=== PATIENT | female | born 1950 | race Caucasian/White ===

== ENCOUNTER 2017-04-04 23:18 | Inpatient (IN) | payer MEDICARE, OTHER ==
[~2017-04-04 23:18] MED LIST: ALDACTONE25 M1 PO; ALOGLIPTIN6.25 MG PO; ASPIRIN325 M3 PO; CATAPRES0.1 M1 PO; COLACE100 M1 PO; COREG25 M1 PO; COZAAR100 M1 PO; CPAP; EFFEXOR XR75 M1 PO; GLIPIZIDE5 M2 PO; KEFLEX500 M4 PO; LASIX40 M1 PO; LIPITOR20 M1 PO; NEPHRO-VITE RX1 EAC1 PO; NORVASC5 M2 PO; PERCOCET 5-3251 EACH PO; ROCALTROL0.25 MC1 PO; VITAMIN D PO; VITAMIN D50000 UNI2 PO; ZYLOPRIM100 M1 PO
[2017-04-04] MEDS ORDERED: VITAMIN D50000 UNI2 PO (23:37)
[2017-04-04] MEDS ORDERED: [UNRECOGNIZED DRUG - OTHER] PO (23:43)
[2017-04-05 02:45] LABS: BASO % 0.1 % (0-2); HCT-HEMATOCRIT 22.9 % (34.0-49.0); HGB-HEMOGLOBIN 7.6 gm/dl (12.0-15.5); IMMATURE GRANULOCYTES ABSOLUTE 0.01 tho/cmm (0-0.03); IMMATURE GRANULOCYTES PERCENT 0.1 % (0-0.3); LYMPH % 8.4 % (20-45); LYMPH ABSOLUTE COUNT 0.7 tho/cmm (0.8-4.5); MCH (MEAN CORPUSCULAR HGB) 31.7 pg (28.0-32.0); MCHC MEAN CORPUSCULAR HGB CONC 33.2 % (32.0-36.0); MCV (MEAN CELL VOLUME) 95.4 fl (82.0-96.0); MONO % 13.9 % (0-12); MONOCYTE ABSOLUTE COUNT 1.2 tho/cmm (0.0-1.2); NEUTROPHIL ABSOLUTE COUNT 6.8 tho/cmm (1.6-8.0); NEUTROPHIL-AUTOMATED 6.8 tho/cmm (1.6-8.0); NEUTROPHILS % 77.5 % (40-80); PLATELET COUNT 114 tho/cmm (150-450); RED CELL DISTRIBUTION WIDTH 14.7 % (12.4-16.4); WHITE BLOOD COUNT 8.7 tho/cmm (4.0-10.0)
[2017-04-05 04:25] LABS: PHOSPHOROUS 2.4 mg/dl (2.5-4.9)
[2017-04-05 06:17] LABS: ALB/GLOB RATIO 0.9 (0.8-2.0); ALBUMIN 3.1 g/dl (3.5-5.0); ALKALINE PHOSPHATASE 92 U/L (33-138); ALT/SGPT 42 U/L (12-78); ANION GAP 15 mmol/L (0-20); AST/SGOT 36 U/L (10-40); BILIRUBIN,TOTAL 0.5 mg/dl (0-1.5); BLOOD UREA NITROGEN 49 mg/dl (6-24); CALCIUM 8.6 mg/dl (8.5-10.5); CARBON DIOXIDE-VENOUS 21 mmol/L (22-32); CHLORIDE 111 mmol/l (96-110); CREATININE 2.67 mg/dl (0.50-1.10); POTASSIUM 4.8 mmol/L (3.7-5.1); SODIUM 142 mmol/L (135-145); eGFR VALUE FOR BLACK 20 mL/Min
[2017-04-05 06:32] LABS: GLUCOSE 168 mg/dL (70-110)
[2017-04-05 10:53] LABS: IRON 16 ug/dl (37-170); IRON BINDING CAPACITY 249 ug/dl (250-450)
[2017-04-06 04:35] LABS: EOS % 0.4 % (0-7); HGB-HEMOGLOBIN 7.2 gm/dl (12.0-15.5); IMMATURE GRANULOCYTES ABSOLUTE 0.02 tho/cmm (0-0.03); IMMATURE GRANULOCYTES PERCENT 0.4 % (0-0.3); LYMPH % 12.1 % (20-45); LYMPH ABSOLUTE COUNT 0.6 tho/cmm (0.8-4.5); MCHC MEAN CORPUSCULAR HGB CONC 33.3 % (32.0-36.0); MEAN PLATELET VOLUME 9.9 cmc (9.4-12.4); MONOCYTE ABSOLUTE COUNT 0.9 tho/cmm (0.0-1.2); NEUTROPHIL ABSOLUTE COUNT 3.5 tho/cmm (1.6-8.0); NEUTROPHIL-AUTOMATED 3.5 tho/cmm (1.6-8.0); NEUTROPHILS % 69.1 % (40-80); PLATELET COUNT 106 tho/cmm (150-450); RED BLOOD COUNT 2.25 mil/cmm (4.00-5.20); RED CELL DISTRIBUTION WIDTH 14.8 % (12.4-16.4); WHITE BLOOD COUNT 5.1 tho/cmm (4.0-10.0)
[2017-04-06 04:38] LABS: HCT-HEMATOCRIT 21.6 % (34.0-49.0)
[2017-04-06 04:51] LABS: ALBUMIN 2.6 g/dl (3.5-5.0); ANION GAP 13 mmol/L (0-20); BLOOD UREA NITROGEN 60 mg/dl (6-24); CALCIUM 8.5 mg/dl (8.5-10.5); CARBON DIOXIDE-VENOUS 24 mmol/L (22-32); CHLORIDE 108 mmol/l (96-110); PHOSPHOROUS 3.8 mg/dl (2.5-4.9); POTASSIUM 4.6 mmol/L (3.7-5.1); SODIUM 140 mmol/L (135-145)
[2017-04-06 05:04] LABS: CREATININE 3.48 mg/dl (0.50-1.10); GLUCOSE 82 mg/dL (70-110); eGFR VALUE FOR BLACK 15 mL/Min
[2017-04-07 05:00] LABS: BASO % 0.2 % (0-2); EOS % 0.2 % (0-7); IMMATURE GRANULOCYTES ABSOLUTE 0.04 tho/cmm (0-0.03); IMMATURE GRANULOCYTES PERCENT 0.8 % (0-0.3); LYMPH % 10.5 % (20-45); LYMPH ABSOLUTE COUNT 0.5 tho/cmm (0.8-4.5); MCV (MEAN CELL VOLUME) 95.4 fl (82.0-96.0); MEAN PLATELET VOLUME 9.5 cmc (9.4-12.4); MONO % 22.3 % (0-12); MONOCYTE ABSOLUTE COUNT 1.1 tho/cmm (0.0-1.2); NEUTROPHIL ABSOLUTE COUNT 3.3 tho/cmm (1.6-8.0); NEUTROPHIL-AUTOMATED 3.3 tho/cmm (1.6-8.0); PLATELET COUNT 113 tho/cmm (150-450); RED BLOOD COUNT 2.19 mil/cmm (4.00-5.20); RED CELL DISTRIBUTION WIDTH 14.5 % (12.4-16.4); WHITE BLOOD COUNT 4.9 tho/cmm (4.0-10.0)
[2017-04-07 05:05] LABS: HCT-HEMATOCRIT 20.9 % (34.0-49.0); MCHC MEAN CORPUSCULAR HGB CONC 33.5 % (32.0-36.0)
[2017-04-07 05:16] LABS: ALBUMIN 2.6 g/dl (3.5-5.0); ANION GAP 14 mmol/L (0-20); BLOOD UREA NITROGEN 68 mg/dl (6-24); CALCIUM 8.4 mg/dl (8.5-10.5); CARBON DIOXIDE-VENOUS 24 mmol/L (22-32); CHLORIDE 104 mmol/l (96-110); CREATININE 3.59 mg/dl (0.50-1.10); PHOSPHOROUS 3.9 mg/dl (2.5-4.9); POTASSIUM 4.3 mmol/L (3.7-5.1); SODIUM 138 mmol/L (135-145); eGFR VALUE FOR BLACK 14 mL/Min
[2017-04-07 05:25] LABS: GLUCOSE 59 mg/dL (70-110)
[2017-04-08 06:10] LABS: BASO % 0.4 % (0-2); EOS % 0.2 % (0-7); HCT-HEMATOCRIT 24.4 % (34.0-49.0); HGB-HEMOGLOBIN 8.1 gm/dl (12.0-15.5); IMMATURE GRANULOCYTES PERCENT 1.9 % (0-0.3); LYMPH % 14.8 % (20-45); LYMPH ABSOLUTE COUNT 0.8 tho/cmm (0.8-4.5); MCH (MEAN CORPUSCULAR HGB) 30.7 pg (28.0-32.0); MCHC MEAN CORPUSCULAR HGB CONC 33.2 % (32.0-36.0); MCV (MEAN CELL VOLUME) 92.4 fl (82.0-96.0); MEAN PLATELET VOLUME 10.2 cmc (9.4-12.4); MONO % 14.6 % (0-12); MONOCYTE ABSOLUTE COUNT 0.8 tho/cmm (0.0-1.2); NEUTROPHIL ABSOLUTE COUNT 3.5 tho/cmm (1.6-8.0); NEUTROPHIL-AUTOMATED 3.5 tho/cmm (1.6-8.0); NEUTROPHILS % 68.1 % (40-80); PLATELET COUNT 119 tho/cmm (150-450); RED BLOOD COUNT 2.64 mil/cmm (4.00-5.20); RED CELL DISTRIBUTION WIDTH 16.7 % (12.4-16.4); WHITE BLOOD COUNT 5.2 tho/cmm (4.0-10.0)
[2017-04-08 06:20] LABS: ALBUMIN 2.6 g/dl (3.5-5.0); ANION GAP 16 mmol/L (0-20); BLOOD UREA NITROGEN 73 mg/dl (6-24); CALCIUM 8.5 mg/dl (8.5-10.5); CARBON DIOXIDE-VENOUS 24 mmol/L (22-32); CHLORIDE 104 mmol/l (96-110); CREATININE 3.76 mg/dl (0.50-1.10); GLUCOSE 83 mg/dL (70-110); PHOSPHOROUS 3.3 mg/dl (2.5-4.9); POTASSIUM 4.2 mmol/L (3.7-5.1); SODIUM 140 mmol/L (135-145); eGFR VALUE FOR BLACK 14 mL/Min
[2017-04-08] MEDS ORDERED: NITROSTAT0.4 M1 PO (12:16)
[2017-04-08] MEDS ORDERED: COLACE100 M1 PO (12:18)
[2017-04-08] MEDS ORDERED: DULCOLAX10 MG PR (12:19)
[2017-04-08] MEDS ORDERED: MIRALAX17 G2 PO (12:19)
[2017-04-08] MEDS ORDERED: LASIX40 M1 PO (14:08)
[2017-04-08] MEDS ORDERED: GLUCOTROL5 M1 PO (14:08)
== END 2017-04-08 15:00 | DRG 280 ==
LOC: 5WD 23:18 → PCUA 04-05 07:16
PROVIDERS: Internal Medicine Interventional Cardiology; Internal Medicine Nephrology; Registered Nurse; ADMIT Hospitalist
PROC: 5A09357 Assistance with Respiratory Ventilation, Less than 24 Consecutive Hours, Continuous Positive Airway Pressure (ICD-10-PCS; principal; 2017-04-04)
PROC: 30233N1 Transfusion of Nonautologous Red Blood Cells into Peripheral Vein, Percutaneous Approach (ICD-10-PCS; 2017-04-07)
DX: I13.2 Hypertensive heart and chronic kidney disease with heart failure and with stage 5 chronic kidney disease, or end stage renal disease (principal); I50.43 Acute on chronic combined systolic (congestive) and diastolic (congestive) heart failure; I21.4 Non-ST elevation (NSTEMI) myocardial infarction; N17.9 Acute kidney failure, unspecified; N18.5 Chronic kidney disease, stage 5; E11.22 Type 2 diabetes mellitus with diabetic chronic kidney disease; D69.6 Thrombocytopenia, unspecified; I42.9 Cardiomyopathy, unspecified; N25.81 Secondary hyperparathyroidism of renal origin; E11.649 Type 2 diabetes mellitus with hypoglycemia without coma; D63.1 Anemia in chronic kidney disease; R11.2 Nausea with vomiting, unspecified; Z85.42 Personal history of malignant neoplasm of other parts of uterus; Z95.0 Presence of cardiac pacemaker; M81.0 Age-related osteoporosis without current pathological fracture; Z79.84 Long term (current) use of oral hypoglycemic drugs; E78.5 Hyperlipidemia, unspecified; G47.33 Obstructive sleep apnea (adult) (pediatric); Z87.891 Personal history of nicotine dependence; Z79.82 Long term (current) use of aspirin; Z79.02 Long term (current) use of antithrombotics/antiplatelets; E11.319 Type 2 diabetes mellitus with unspecified diabetic retinopathy without macular edema
CPT/HCPCS: C1725; C1769; C1887; C8929; G8978-GP-CH; J0885; J1644; J1650; J1756; J1815; J1940; J2405; J7030; P9016; Q9967